=== PATIENT | female | born 1965 | race Caucasian/White ===

== ENCOUNTER 2023-03-16 07:26 | Observation (INO) | payer BC, SELFPAY ==
[2023-03-16] VITALS (8 sets, daily range): BP systolic 107–124; BP diastolic 70–86; PULSE 93–100; RESP 18–20; TEMP 36.1–37.1; O2SAT 89–99; BMI 25.0; BMI 24.4
--- NOTE | 2023-03-16 07:42 | ED_ITS ---
HPI - General Adult General Chief complaint: Upper Respiratory Infection Stated complaint: Flu Like symptoms Time Seen by Provider: 03/16/23 07:28 Source: patient Mode of arrival: walk-in Limitations: no limitations History of Present Illness HPI narrative: Patient developed flu-like symptoms 4 nights ago. She admits to chest congestion, dry cough, fatigue, muscle aches, and GI upset with poor oral intake the last few days. She has not been able to eat solid foods for 3 days. She complains of nausea and vomiting but no diarrhea. Her was will with upper respiratory symptoms, muscle aches and fatigue but no GI symptoms. She took a Covid test yesterday and it was negative. PMHx = asthma Related Data Home Medications Medication Instructions Recorded Confirmed albuterol sulfate 90 mcg/actuation 2 puff inhalation Q4H PRN 03/16/23 03/16/23 aerosol inhaler shortness of breath or wheezing alendronate 70 mg tablet 70 mg PO .weekly 03/16/23 03/16/23 carvedilol 6.25 mg tablet 6.25 mg PO Q12H 03/16/23 03/16/23 ergocalciferol (vitamin D2) 1,250 1,250 mcg PO .COMPLEX 03/16/23 03/16/23 mcg (50,000 unit) capsule fluticasone propionate 110 1 inh inhalation BID 03/16/23 03/16/23 mcg/actuation HFA aerosol inhaler hydrocortisone 10 mg tablet 5 mg PO QPM 03/16/23 03/16/23 hydrocortisone 10 mg tablet 15 mg PO QAM 03/16/23 03/16/23 levothyroxine 88 mcg tablet 88 mcg PO .before breakfast 03/16/23 03/16/23 Allergies Allergy/AdvReac Type Severity Reaction Status Date / Time Sulfa (Sulfonamide AdvReac Intermediate Verified 03/16/23 07:33 Antibiotics) [facility] Medical History (Updated 03/16/23 @ 09:43 by Marce Moody) Asthma ?J45.909 - Unspecified asthma, uncomplicated (ICD-10) Thyroid activity decreased ?E03.9 - Hypothyroidism, unspecified (ICD-10) 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 Smoking status: Never smoker Non-prescribed substance use: denies use Previous occupational history: doesnt work Highest level of school completed/degree received: high school graduate Are you now , , , , never or living with a partner: Little interest or pleasure in doing things: not at all Feeling down, depressed, or hopeless: not at all Feel stressed/tense/nervous/anxious/difficulty sleeping: not at all Exam Narrative Exam Narrative: Nurses notes and vital signs reviewed and patient is not hypoxic. afebrile General: Well-appearing and in no apparent distress. Skin: Warm, dry, no pallor noted. No rash. Head: Normocephalic, atraumatic. Neck: Supple, non-tender. No cervical lymphadenopathy. No meningismus. Eye: Pupils are equal, round and EOMI. No scleral icterus. Ears, Nose, Mouth, and Throat: Oral mucosa is dry Cardiovascular: Borderline tachycardia. Respiratory: No accessory muscle use or respiratory distress. Lungs are clear to auscultation, no wheezing, rales or rhonchi Back: No CVA tenderness Musculoskeletal: normal ROM, no calf or popliteal tenderness, no lower extremity edema/swelling GI: Abdomen is soft, non-distended. Normal bowel sounds. No tenderness to palpation. No rebound, guarding, or rigidity noted. Neurological: A&O x4. No cranial nerve dysfunction observed. No truncal ataxia. Moves all extremities. Sensation intact. Psychiatric: Cooperative and interactive. Normal mood and affect. Constitutional Vital Signs, click to edit/add: Last Vital Signs Temp 98.7 F 03/16/23 09:24 Pulse 97 H 03/16/23 09:24 Resp 20 03/16/23 09:24 BP 108/70 03/16/23 09:24 Pulse Ox 93 L 03/16/23 11:43 O2 Del Method Room Air 03/16/23 11:43 O2 Flow Rate 2 03/16/23 08:54 Course Vital Signs Vital signs: Vital Signs Temperature 97.7 F 03/16/23 07:33 Pulse Rate 99 H 03/16/23 07:33 Respiratory Rate 20 03/16/23 07:33 Blood Pressure 113/86 03/16/23 07:33 Pulse Oximetry 92 L 03/16/23 07:33 Oxygen Delivery Method Room Air 03/16/23 07:33 Temperature 98.7 F 03/16/23 09:24 Pulse Rate 97 H 03/16/23 09:24 Respiratory Rate 20 03/16/23 09:24 Blood Pressure 108/70 03/16/23 09:24 Pulse Oximetry 93 L 03/16/23 11:43 Oxygen Delivery Method Room Air 03/16/23 11:43 Oxygen Delivery Flow Rate 2 03/16/23 08:54 Medical Decision Making MDM Narrative Medical decision making narrative: Peripheral IV established and blood drawn and sent for testing. Her oxygen saturation varied between 88 and 92% on room air, therefore the ED nurse applied nasal cannula oxygen to the patient at 2 L/min. The patient was also swabbed for COVID and influenza. Abdominal series x-rays were obtained. The patient received normal saline IV fluid and IV Zofran. Na+ and Cl very low at 121 & 84. BUN slightly elevated at 23. CO2 normal at 24. AST and AlkPh elevated at 50, 121. Normal ALT and Bili. Lipase normal. WBC normal. Hb elevated at 16.7. She tested positive for influenza A. Due to her marked electrolyte abnormalities - she has only been sipping water and not eating or drinking anything else - she will be admitted, [facility], to Dr Schwab's service. Case discussed with Dr Schwab. Lab Data Lab results reviewed: Yes I reviewed the patient's lab results Labs: Lab Results 03/16/23 03/16/23 Range/Units 07:52 07:55 WBC 5.6 (4.0-11.0) 10^3/uL RBC 5.66 H (4.20-5.40) 10^6/uL Hgb 16.7 H (12.0-16.0) g/dL Hct 47.8 (36.0-48.0) % MCV 84.5 (81.0-99.0) fL MCH 29.5 (26.7-34.0) pg MCHC 34.9 (29.9-35.2) g/dL RDW 11.7 (11.0-15.0) % Plt Count 227 (150-450) 10^3/uL MPV 9.1 L (9.5-13.5) fL Neut % (Auto) 57.3 (43.0-75.0) % Lymph % (Auto) 28.1 (20.5-60.0) % [place] % (Auto) 12.8 H (1.7-12.0) % Eos % (Auto) 0.4 L (0.9-7.0) % Baso % (Auto) 0.7 (0.2-2.0) % Neut # (Auto) 3.2 (1.4-6.5) 10^3/uL Lymph # (Auto) 1.6 (1.2-3.8) 10^3/uL [place] # (Auto) 0.7 (0.3-0.8) 10^3/uL Eos # (Auto) 0.0 (0.0-0.7) 10^3/uL Baso # (Auto) 0.0 (0.0-0.1) 10^3/uL Abs Immat Gran (auto) 0.04 H (0.00-0.03) 10^3/uL Imm/Tot Granulo (auto) 0.7 H (0.0-0.5) % Sodium 121 L* (136-145) mmol/L Potassium 4.4 (3.5-5.1) mmol/L Chloride 84 L* (98-107) mmol/L Carbon Dioxide 23.7 (21.0-32.0) mmol/L Anion Gap 17.7 BUN 23.0 H (7.0-18.0) mg/dL Creatinine 1.15 H (0.55-1.02) mg/dL Est GFR ( Amer) 59 L (>=60) Est GFR (Non-Af Amer) 49 L (>=60) BUN/Creatinine Ratio 20.0 Glucose 99 (74-106) mg/dL Calcium 9.6 (8.5-10.1) mg/dL Total Bilirubin 0.5 (0.2-1.0) mg/dL AST 50 H (15-37) U/L ALT 51 (14-59) U/L Alkaline Phosphatase 121 H (46-116) U/L Total Protein 8.2 (6.4-8.2) g/dL Albumin 4.0 (3.4-5.0) g/dL Globulin 4.2 g/dL Albumin/Globulin Ratio 1.0 Lipase 28.0 (16.0-77.0) U/L Influenza Type A Ag Positive A Influenza Type B Ag Negative SARS-CoV-2 Ag (CV2AG) Negative (NEGATIVE) Imaging Data xr chest & abd: Attestation: I personally reviewed and interpreted this imaging study as follows: My impression: No acute cardiopulmonary abnormalities. No obstruction. Marked scoliosis. Radiologist's impression: ITS Impressions Chest/Abdomen X-ray 03/16/23 07:52 IMPRESSION: Clear lungs Nonobstructive bowel gas pattern Electronically authenticated by: MENG MOSQUEDA Date: 03/16/2023 08:47 Discharge Plan Discharge Chief Complaint: Upper Respiratory Infection Clinical Impression: Acute hyponatremia, Acute dehydration, Influenza A, Hypochloremia Patient Disposition: Admitted as Observation Time of Disposition Decision: 08:45 Discharge Date/Time: 03/16/23 09:32
--- NOTE | 2023-03-16 07:52 | XR_ITS ---
[address] [address] Patient Name: CANDIDO RIGGS MRN: [id number] date: 1965 Sex: F Assigned Patient Location: ER Current Patient Location: ED.MAIN Accession/Order Number: [id number] Exam Date: 03/16/2023 08:20 Report Date: 03/16/2023 08:47 At the request of: LAURA WAGNER Procedure: XR acute abdomen series EXAMINATION: XR acute abdomen series HISTORY: cough, vomiting COMPARISON: No relevant comparison available. FINDINGS: LUNGS: No infiltrate, pneumothorax, or pleural effusion. MEDIASTINUM: No abnormal widening. BOWEL GAS PATTERN: Non-obstructed. FREE AIR: None. CALCIFICATIONS: None significant. BONES: S-shaped rotatory scoliosis of the spine OTHER: Negative. XR/XR acute abdomen series IMPRESSION: Clear lungs Nonobstructive bowel gas pattern Electronically authenticated by: MENG MOSQUEDA Date: 03/16/2023 08:47
[2023-03-16] MEDS: 0.9 % SODIUM CHLORIDE 1,000 ML 1000 ML IV ×2 (07:58→08:53)
[2023-03-16 08:03] LABS: Basophils Percent Auto 0.7 % (0.2-2.0); Eosinophils Percent Auto 0.4 % (0.9-7.0); Hematocrit 47.8 % (36.0-48.0); Hemoglobin 16.7 g/dL (12.0-16.0); Immature Granulocytes Abs Auto 0.04 10^3/uL (0.00-0.03); Immature Granulocytes Pct Auto 0.7 % (0.0-0.5); Lymphocytes Absolute Auto 1.6 10^3/uL (1.2-3.8); Lymphocytes Percent Auto 28.1 % (20.5-60.0); Mean Corpuscular HGB Conc 34.9 g/dL (29.9-35.2); Mean Corpuscular Hemoglobin 29.5 pg (26.7-34.0); Mean Corpuscular Volume 84.5 fL (81.0-99.0); Mean Platelet Volume 9.1 fL (9.5-13.5); Monocytes Absolute Auto 0.7 10^3/uL (0.3-0.8); Monocytes Percent Auto 12.8 % (1.7-12.0); Neutrophils Absolute Auto 3.2 10^3/uL (1.4-6.5); Neutrophils Percent Auto 57.3 % (43.0-75.0); Platelet Count 227 10^3/uL (150-450); Red Blood Count 5.66 10^6/uL (4.20-5.40); Red Cell Distribution Width 11.7 % (11.0-15.0); White Blood Count 5.6 10^3/uL (4.0-11.0)
[2023-03-16] MEDS: ONDANSETRON PF 4 MG/2 ML VIAL IV (08:07)
[2023-03-16 08:17] LABS: Alanine Aminotransferase 51 U/L (14-59); Alkaline Phosphatase 121 U/L (46-116); Anion Gap 17.7; Aspartate Amino Transferase 50 U/L (15-37); Bilirubin Total 0.5 mg/dL (0.2-1.0); Calcium 9.6 mg/dL (8.5-10.1); Carbon Dioxide 23.7 mmol/L (21.0-32.0); Estimated GFR (African America 59 (>=60); Estimated GFR (Non-African Ame 49 (>=60); Globulin 4.2 g/dL; Glucose 99 mg/dL (74-106); Potassium 4.4 mmol/L (3.5-5.1); Total Protein 8.2 g/dL (6.4-8.2)
[2023-03-16 08:21] LABS: Influenza Virus A Antigen Positive; Influenza Virus B Antigen Negative; Internal Control Within Normal Limits
[2023-03-16 08:22] LABS: SARS-CoV-2 Ag NEGATIVE (NEGATIVE)
[2023-03-16 08:34] LABS: Chloride 84 mmol/L (98-107); Sodium 121 mmol/L (136-145)
--- NOTE | 2023-03-16 08:49 | PC.NURSE ---
pt O2 SAT down to 89% on RA. pt placed on 2L per NC. SAT up to 94% on 2L
[2023-03-16] MEDS: IPRATROPIUM/ALBUTEROL SULFATE 3 ML AMPUL.NEB IH (08:53)
[2023-03-16] MEDS: HYDROCORTISONE SODIUM SUCC PF 100 MG/2 ML VIAL IVP ×3 (11:13→23:52)
[2023-03-16] MEDS: 0.9 % SODIUM CHLORIDE 1,000 ML 100 ML IV ×2 (11:13→20:54)
[2023-03-16] MEDS: ENOXAPARIN SODIUM 40 MG/0.4 ML SYRINGE SUBQ (11:13)
[2023-03-16] MEDS: OSELTAMIVIR PHOSPHATE 75 MG CAPSULE PO ×2 (11:13→20:53)
--- NOTE | 2023-03-16 12:53 | P.HP_ITS ---
<Statement entered by Shahbaz Schwab MD - 03/16/23 19:31> This documentation has been reviewed and approved. Patient seen and evaluated this morning. Case discussed with nurse practitioner agree with input and diagnoses provided by nurse practitioner no change in clinical assessment. Added Dx: Patient did have sinus tachycardia which is likely related to the mild dehydration H&P: HPI History of Present Illness Chief complaint: Flu Like symptoms Narrative: 03/16/23 0945 This is a 57-year-old female patient with a past medical history as outlined below including Damian's disease, hypothyroidism, asthma, and hypertension; who presented to the ED earlier this morning complaining of flulike symptoms that started 4 days ago. She noted onset of rhinorrhea on Monday that onset of pleuritic chest pain with deep inspiration on Monday. She developed a loose cough on Monday. On Monday she began to experience vomiting after prolonged coughing. She also noted nausea and vomiting after standing up when she would become mildly lightheaded and diaphoretic. She reports minimal oral intake of food or fluids since Monday and she has been short of breath and wheezing. She reports that her had upper respiratory symptoms recently but was not tested for COVID or influenza. Workup in the ED revealed significant hyponatremia (121), abnormal renal function but unknown if this is her baseline (BUN 23, CR 1.15, GFR 49). She also had mild AST elevation (50), and alk phos elevation (121). COVID swab was negative but influenza A was positive. Lipase was within normal limits. Chest x-ray revealed no acute disease and an abdominal x-ray showed nonobstructive bowel gas pattern. She became hypoxic in the ED with sats down to 89% on room air and she was placed on 2 L via nasal cannula. After being treated with breathing treatments in the ED her shortness of breath improved and she was able to be we[facility] off of [facility] She is being admitted in observation to the hospitalist service for hyponatremia, influenza A infection, and acute asthma exacerbation. At the time of my exam the patient is resting comfortably in bed but admits to significant fatigue and malaise. Her shortness of breath and coughing have improved since breathing treatments in the ED. She reports chronic hyponatremia due to her [place]'s disease, but she is on sure of her baseline sodium level. She also reports dry kidneys but her baseline renal function was unknown in the ED. After review of minimal outpatient labs available, it appears that her renal function is usually normal, possibly CKD 2 at baseline. Her baseline sodium appears to be around 130. She will also be treated for dehydration and KARON. 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 Smoking status: Never smoker Non-prescribed substance use: denies use Previous occupational history: doesnt work Highest level of school completed/degree received: high school graduate Are you now , , , , never or living with a partner: Little interest or pleasure in doing things: not at all Feeling down, depressed, or hopeless: not at all Feel stressed/tense/nervous/anxious/difficulty sleeping: not at all Meds Home Medications and Allergies Home Medications Medication Instructions Recorded Confirmed Type albuterol sulfate 90 mcg/actuation 2 puff inhalation Q4H PRN 03/16/23 03/16/23 History aerosol inhaler shortness of breath or wheezing alendronate 70 mg tablet 70 mg PO .weekly 03/16/23 03/16/23 History carvedilol 6.25 mg tablet 6.25 mg PO Q12H 03/16/23 03/16/23 History ergocalciferol (vitamin D2) 1,250 1,250 mcg PO .COMPLEX 03/16/23 03/16/23 History mcg (50,000 unit) capsule fluticasone propionate 110 1 inh inhalation BID 03/16/23 03/16/23 History mcg/actuation HFA aerosol inhaler hydrocortisone 10 mg tablet 5 mg PO QPM 03/16/23 03/16/23 History hydrocortisone 10 mg tablet 15 mg PO QAM 03/16/23 03/16/23 History levothyroxine 88 mcg tablet 88 mcg PO .before breakfast 03/16/23 03/16/23 History Allergies Allergy/AdvReac Type Severity Reaction Status Date / Time Sulfa (Sulfonamide AdvReac Intermediate Verified 03/16/23 07:33 Antibiotics) Exam Constitutional Vital Signs, click to edit/add: Last Vital Signs Temp 98.7 F 03/16/23 09:24 Pulse 97 H 03/16/23 09:24 Resp 20 03/16/23 09:24 BP 108/70 03/16/23 09:24 Pulse Ox 93 L 03/16/23 11:43 O2 Del Method Room Air 03/16/23 11:43 O2 Flow Rate 2 03/16/23 08:54 Common normals: no apparent distress, oriented x3, alert and well nourished General appearance: cooperative Orientation/consciousness: Yes awake HENMT Common normals: normocephalic, head/scalp atraumatic, hearing grossly normal bilaterally, external nose normal and moist oral mucous membranes Eye Common normals: PERRL, EOMs intact bilaterally, conjunctivae normal and no scleral icterus Alignment: alignment normal Eyelid: eyelids normal Neck & C-Spine Common normals: full ROM, supple and no JVD Chest Common normals: inspection of chest normal Chest: symmetrical chest wall rise Respiratory Common normals: normal respiratory effort, no retractions and no use of accessory muscles Effort & inspection: able to speak in complete sentences Auscultation: wheezes (EE RUL) Cardio Common normals: no JVD, regular rate, regular rhythm, S1 normal heart sound, S2 normal heart sound, no gallops, no clicks, no rub and peripheral pulses 2+ throughout Heart sounds: murmur (HSM 2/6) GI Common normals: Normal to inspection, nondistended, normoactive bowel sounds present, soft to palpation, non-tender, no hepatosplenomegaly, no masses and no bruits Bladder/kidney exam: bladder normal to palpation Back & Pelvis Common normals: thoracic and lumbar spine normal to inspection Extremity Common normals: normal capillary refill and no pedal edema General: normal exam except as noted; no clubbing and no cyanosis Neuro [place] Coma Scale: GCS not evaluated Common normals: CN's II-XII intact bilaterally, moves all extremities, no focal motor deficits and no sensory deficits noted Speech: speech normal Motor exam: strength 5/5 throughout Psych Common normals: mental status grossly normal, thought process normal, affect normal and activity/motor behavior normal Results Labs Labs: Short CBC 03/16/23 Range/Units 07:52 WBC 5.6 (4.0-11.0) 10^3/uL Hgb 16.7 H (12.0-16.0) g/dL Hct 47.8 (36.0-48.0) % Plt Count 227 (150-450) 10^3/uL BMP 03/16/23 07:52 Sodium 121 L* Potassium 4.4 Chloride 84 L* Carbon Dioxide 23.7 BUN 23.0 H Creatinine 1.15 H Glucose 99 Calcium 9.6 Liver Function 03/16/23 Range/Units 07:52 Total Bilirubin 0.5 (0.2-1.0) mg/dL AST 50 H (15-37) U/L ALT 51 (14-59) U/L Alkaline Phosphatase 121 H (46-116) U/L Albumin 4.0 (3.4-5.0) g/dL Pulse Oximetry Attestation: I have reviewed the pertinent pulse oximetry results. Imaging Chest/Abdomen XR: Attestation: I have reviewed the pertinent imaging results. Radiologist's impression: IMPRESSION: Clear lungs Nonobstructive bowel gas pattern Assessment and Plan Assessment and Plan (1) Influenza A: Assessment and Plan: ACUTE * Adm observation * Supportive care: * NS IVF at 100/hr * Tamiflu * Guaifenisen for sputum mobilization * Tessalon perles PRN for cough * Zofran to assist w/ coughing associated nausea/vomiting * Sputum culture to r/o secondary bacterial infection - not currently suspected in absence of leukocytosis, fever, clear CXR * CBC, CMP daily (2) Hypoxia: Assessment and Plan: ACUTE * Sats down to 89% on RA in the ED * Resolved after breathing treatments * O2 d/c'd on arrival to the med floor * O2 if needed to keep sats above 92% * PRN Duonebs (3) Acute hyponatremia: Assessment and Plan: ACUTE ON CHRONIC * Na 121 in ED * Baseline Na around 130 d/t hx of [place]'s disease * No sodium wasting meds on profile * Suspect 2/2 dehydration w/ reported decrease fluid intake x 4 days (see dehydration) * NS IVFs at 100/hr (after 2 liter boluses in ED) * Correction goal rate of 0.5 meq/L/hr to avoid osmotic demyelination * Repeat BMP this afternoon for close monitoring * CMP daily (4) Acute dehydration: Assessment and Plan: ACUTE * 2/2 poor oral fluid intake x 4 days * IVS as above * CMP daily (5) Addisons disease: Assessment and Plan: CHRONIC * Continue home hydrocortizone BID * Add steroid stress dosing with solucortef x 3 doses in addition to home steroid * BP soft on admission - at risk for significant hypotension (6) Thyroid activity decreased: Assessment and Plan: CHRONIC * Continue home levothyroxine (7) Hypertension: Assessment and Plan: CHRONIC * BP's currently soft in steroid dependent pt w/ dehydration * Hold home Coreg for now, plan to resume on 02/15/23 unless clinically indicated sooner * Hold for SBP < 100 (8) Asthma: Assessment and Plan: CHRONIC * PRN Duonebs * Steroids as above * No clinical concern for acute exacerbation, but pt is at risk * Monitor closely
[2023-03-16 15:17] LABS: Anion Gap 16.7; Calcium 8.2 mg/dL (8.5-10.1); Carbon Dioxide 20.6 mmol/L (21.0-32.0); Chloride 94 mmol/L (98-107); Estimated GFR (African America >60 (>=60); Estimated GFR (Non-African Ame >60 (>=60); Glucose 175 mg/dL (74-106); Potassium 4.3 mmol/L (3.5-5.1); Sodium 127 mmol/L (136-145)
[2023-03-16] MEDS: GUAIFENESIN 600 MG TAB.ER.12H PO (16:01)
[2023-03-16] MEDS: FLUTICASONE PROPIONATE HFA 110 MCG INHALER 120 PUFF/12 GM IH (20:06)
[2023-03-16] MEDS: CARVEDILOL 6.25 MG TABLET PO (22:34)
[2023-03-17 05:05] LABS: Hematocrit 37.5 % (36.0-48.0); Hemoglobin 12.7 g/dL (12.0-16.0); Mean Corpuscular HGB Conc 33.9 g/dL (29.9-35.2); Mean Corpuscular Hemoglobin 28.8 pg (26.7-34.0); Mean Platelet Volume 9.4 fL (9.5-13.5); Platelet Count 200 10^3/uL (150-450); Red Blood Count 4.41 10^6/uL (4.20-5.40); Red Cell Distribution Width 11.7 % (11.0-15.0); White Blood Count 2.7 10^3/uL (4.0-11.0)
[2023-03-17] MEDS: GUAIFENESIN 600 MG TAB.ER.12H PO (05:07)
[2023-03-17 05:38] LABS: Alanine Aminotransferase 50 U/L (14-59); Albumin Globulin Ratio 0.8; Albumin Level 2.9 g/dL (3.4-5.0); Alkaline Phosphatase 109 U/L (46-116); Anion Gap 13.4; Aspartate Amino Transferase 44 U/L (15-37); BUN Creatinine Ratio 17.4; Bilirubin Total 0.2 mg/dL (0.2-1.0); Calcium 8.3 mg/dL (8.5-10.1); Carbon Dioxide 24.1 mmol/L (21.0-32.0); Chloride 99 mmol/L (98-107); Estimated GFR (African America >60 (>=60); Estimated GFR (Non-African Ame >60 (>=60); Globulin 3.5 g/dL; Glucose 126 mg/dL (74-106); Potassium 4.5 mmol/L (3.5-5.1); Sodium 132 mmol/L (136-145); Total Protein 6.4 g/dL (6.4-8.2)
[2023-03-17 05:39] LABS: Band Neutrophils Absolute 0.1 10^3/uL (0.0-0.3); Basophils Abs Manual 0.02 10^3/uL (0.00-0.10); Lymphocytes Absolute Manual 0.35 10^3/uL (1.20-3.80); Monocytes Absolute Manual 0.21 10^3/uL (0.30-0.80); Segmented Neut Absolute Manual 2.07 10^3/uL (1.4-6.5)
[2023-03-17 05:42] VITALS: BP 120/77; PULSE 85; RESP 16; TEMP 36.6; O2SAT 92
[2023-03-17] MEDS: LEVOTHYROXINE SODIUM 88 MCG TABLET PO (06:00)
[2023-03-17] MEDS: 0.9 % SODIUM CHLORIDE 1,000 ML 100 ML IV (06:58)
[2023-03-17] MEDS: FLUTICASONE PROPIONATE HFA 110 MCG INHALER 120 PUFF/12 GM IH (08:08)
[2023-03-17] MEDS: IPRATROPIUM/ALBUTEROL SULFATE 3 ML AMPUL.NEB IH (08:08)
[2023-03-17 08:14] VITALS: PULSE 82; O2SAT 93
[2023-03-17] MEDS: OSELTAMIVIR PHOSPHATE 75 MG CAPSULE PO (08:31)
[2023-03-17] MEDS: CARVEDILOL 6.25 MG TABLET PO (08:32)
[2023-03-17] MEDS: HYDROCORTISONE 20 MG TABLET 15 MG PO (08:32)
--- NOTE | 2023-03-17 08:53 | CM.NOTE ---
Rounds made with Dr. Schwab. Potential plan for discharge later today.
--- NOTE | 2023-03-17 10:45 | P.DS_ITS ---
<Statement entered by Shahbaz Schwab MD - 03/17/23 17:11> Patient is still with significant cough did have a little bit of a wheeze on exam. Overall feels much improved. Agree with input and diagnoses provided by nurse practitioner. Seen and examined this morning. This documentation has been reviewed and approved. 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 She was given O2 supplementation for a few hours in the ED and then her hypoxia resolved after receiving breathing treatments. No further O2 supplementation was required throughout her stay. She was initiated on Ta miflu which caused a headache but this was tolerable and she continued taking the medication. She was treated with IV fluids and her sodium level was monitored closely to avoid overly rapid correction. Her sodium recovered at an appropriate rate to her normal baseline sodium level by the time of discharge. Her dehydration also resolved with IV fluids. As this patient is steroid- dependent and her BP was soft on arrival, she was treated with stress dose steroids and her blood pressure recovered appropriately. At the time of discharge the patient reported feeling significantly improved. She continues to have mild wheezing intermittently from her chronic asthma in setting of acute influenza infection. She was prescribed DuoNeb nebulizers at discharge as she has run out of her nebulizer solution at home. She is being discharged home in stable condition w/ a prescription to complete her Tamiflu course. She should follow up with her PCP in 3-5 days. Time Spent with Patient Time attestation: Total time spent providing and/or coordinating discharge services: Time spent: greater than 30 minutes Specific discharge activities: Physical exam, discussion of discharge plan, questions answered. Exam Constitutional Vital Signs, click to edit/add: Last Vital Signs Temp 97.9 F 03/17/23 05:42 Pulse 82 03/17/23 08:14 Resp 16 03/17/23 05:42 BP 120/77 03/17/23 05:42 Pulse Ox 93 L 03/17/23 08:14 O2 Del Method Room Air 03/17/23 08:14 O2 Flow Rate 2 03/16/23 08:54 Common normals: no apparent distress, oriented x3 and alert General appearance: cooperative Orientation/consciousness: Yes awake HENMT Common normals: normocephalic and head/scalp atraumatic Eye Common normals: PERRL, EOMs intact bilaterally, conjunctivae normal and no scleral icterus Neck & C-Spine Common normals: no JVD Respiratory Common normals: normal respiratory effort, no use of accessory muscles and clear to auscultation bilaterally Effort & inspection: able to speak in complete sentences and symmetric chest movement Cardio Common normals: no JVD, regular rate, regular rhythm, S1 normal heart sound, S2 normal heart sound, no murmurs and peripheral pulses 2+ throughout GI Common normals: Normal to inspection, nondistended, normoactive bowel sounds present, soft to palpation and non-tender Bladder/kidney exam: bladder normal to palpation Extremity Common normals: normal to inspection, full ROM, normal capillary refill and no pedal edema General: no clubbing and no cyanosis Neuro Common normals: moves all extremities, no focal motor deficits and no sensory deficits noted Speech: speech normal Psych Common normals: mental status grossly normal and activity/motor behavior normal DS: Data Data Completed and Pending Labs on day of discharge: Labs from last 24 hours 03/17/23 03/16/23 04:34 14:57 WBC 2.7 L RBC 4.41 Hgb 12.7 Hct 37.5 MCV 85.0 MCH 28.8 MCHC 33.9 RDW 11.7 Plt Count 200 MPV 9.4 L Seg Neuts % (Manual) 77.0 Band Neutrophils % 2.0 Lymphocytes % (Manual) 13.0 L Monocytes % (Manual) 8.0 Eosinophils % (Manual) 0.0 L Basophils % (Manual) 1.0 Neutrophils # (Manual) 2.07 Band Neutrophils # 0.1 Lymphocytes # (Manual) 0.35 L Monocytes # (Manual) 0.21 L Eosinophils # (Manual) 0.00 Basophils # (Manual) 0.02 Sodium 132 L 127 L Potassium 4.5 4.3 Chloride 99 94 L Carbon Dioxide 24.1 20.6 L Anion Gap 13.4 16.7 BUN 12.0 18.0 Creatinine 0.69 0.90 Est GFR ( Amer) >60 >60 Est GFR (Non-Af Amer) >60 >60 BUN/Creatinine Ratio 17.4 20.0 Glucose 126 H 175 H Calcium 8.3 L 8.2 L Total Bilirubin 0.2 AST 44 H ALT 50 Alkaline Phosphatase 109 Total Protein 6.4 Albumin 2.9 L Globulin 3.5 Albumin/Globulin Ratio 0.8 Discharge Plan Discharge Disposition: Home, Self-Care Condition: Good Discharge Medications: New ipratropium-albuterol 0.5 mg-3 mg(2.5 mg base)/3 mL solution for nebulization 3 ml inhalation Q6H PRN (Reason: shortness of breath or wheezing) Qty: 90 0RF oseltamivir [Tamiflu] 75 mg capsule 75 mg PO BID 3 Days Qty: 7 0RF Rx Instructions: Start first tab tonight, 03/17/23 Continued carvedilol 6.25 mg tablet 6.25 mg PO Q12H alendronate 70 mg tablet 70 mg PO .weekly ergocalciferol (vitamin D2) 1,250 mcg (50,000 unit) capsule 1,250 mcg PO .COMPLEX Rx Instructions: 1,250 mcg orally every other week; albuterol sulfate 90 mcg/actuation HFA aerosol inhaler 2 puff INHALATION Q4H PRN (Reason: shortness of breath or wheezing) fluticasone propionate 110 mcg/actuation HFA aerosol inhaler 1 inh inhalation BID levothyroxine 88 mcg tablet 88 mcg PO .before breakfast hydrocortisone 10 mg tablet 15 mg PO QAM Rx Instructions: take 1.5 tablets in AM and 1/2 tablet PM hydrocortisone 10 mg tablet 5 mg PO QPM Activity: increase activity as tolerated Diet: advance to your usual diet Patient Instructions: Oseltamivir (By mouth) (Tamiflu), Influenza (DC) Forms: Portal Instructions Follow Up Appointments: @ 11:30am with Dr. Murdock [phone]
--- NOTE | 2023-03-20 15:47 | CM.DCFOLLOWU ---
1st attempt discharge follow up call made by Yvonne Glass on 03/20/23, no answer
== END 2023-03-17 12:39 | disposition home or self-care (01) ==
LOC: ER 08:48 → MS 09:23
PROVIDERS: Admitting Provider Family Medicine; Emergency Provider Emergency Medicine; Family Provider Family Medicine; PCP Family Medicine; Visit Provider Nurse Practitioner
DX: J10.1 Influenza due to other identified influenza virus with other respiratory manifestations (principal); R09.02 Hypoxemia; E87.1 Hypo-osmolality and hyponatremia; E86.0 Dehydration; E27.1 Primary adrenocortical insufficiency; R00.0 Tachycardia, unspecified; E03.9 Hypothyroidism, unspecified; I10 Essential (primary) hypertension; J45.909 Unspecified asthma, uncomplicated; E87.8 Other disorders of electrolyte and fluid balance, not elsewhere classified; Z20.822 Contact with and (suspected) exposure to COVID-19; Z98.890 Other specified postprocedural states; Z79.899 Other long term (current) drug therapy; Z79.890 Hormone replacement therapy
CPT/HCPCS: 36415; 74022; 80048; 80053; 83690; 85025; 85027; 87070; 87804; 87811; 94640; 94761; 96361; 96372; 96374; 96375; 96376; 99285; G0378; J1650; J1720; J2405; J8499